=== PATIENT | female | born 1940 | race Caucasian/White ===

== ENCOUNTER 2021-10-04 23:23 | Inpatient (IN) | payer SELFPAY ==
[~2021-10-04] VITALS: Ht 165.1 cm; Wt 55.3 kg
[2021-10-05 00:04] LABS: CHLORIDE 89 mEq/L (98-107)
[2021-10-05] MEDS ORDERED: SODIUM CHLORIDE 0.9% 1,000 ML IV ONE (00:15)
[2021-10-05] MEDS ORDERED: KETOROLAC 15MG/ML VIAL IV ONE (00:15)
[2021-10-05 00:21] LABS: HEMATOCRIT. 30.7 % (36.0-48.0); HEMOGLOBIN. 10.1 g/dL (12.0-16.0); MEAN CORPUSCULAR HEMOGLOBIN 28.5 pg (28.0-32.0); MEAN CORPUSCULAR VOLUME 87.1 fL (81.0-99.0); MEAN PLATELET VOLUME 7.9 fl (7.4-10.4); PLATELET 361 x1000/uL (130-400); RED BLOOD CELL COUNT 3.53 mill/uL (4.2-5.4); RED CELL DISTRIBUTION WIDTH 15.5 % (11.6-14.6)
[2021-10-05] MEDS ORDERED: MORPHINE SULFATE 4 MG/ML CPJ (NOT FOR IM USE) IV NR (00:30)
[2021-10-05 00:59] LABS: PLATELET ESTIMATE NORMAL
[2021-10-05 09:00] VITALS: BP 121/72
[2021-10-05 09:54] VITALS: BP 121/72
[2021-10-05] MEDS ORDERED: DIPHENHYDRAMINE 50MG/ML VIAL IV PRN (10:30)
[2021-10-05] MEDS ORDERED: ACETAMINOPHEN 325MG TABLET PO PRN ×2 (10:30)
[2021-10-05] MEDS ORDERED: DEXTROSE 50% WATER 50ML SYRINGE IV PRN (10:30)
[2021-10-05] MEDS ORDERED: ONDANSETRON HCL 4MG/2ML INJ IV PRN (10:30)
[2021-10-05] MEDS ORDERED: BISACODYL 10MG SUPP PR NR (10:30)
[2021-10-05] MEDS ORDERED: CLONIDINE 0.1MG TABLET PO PRN (10:30)
[2021-10-05] MEDS ORDERED: ENOXAPARIN 40MG/0.4ML SYR SUBCUT SCH (10:30)
[2021-10-05] MEDS: ENOXAPARIN 30MG/0.3ML SYR SUBCUT SCH (11:05)
[2021-10-05 12:00] VITALS: BP 116/59
[2021-10-05] MEDS ORDERED: MAGNESIUM CITRATE 300ML SOLUTION PO NR (12:00)
[2021-10-05] MEDS: BLOOD SUGAR DIAGNOSTIC STRIP TEST SCH ×3 (12:12→21:00)
[2021-10-05] MEDS: INSULIN LISPRO 100 UNITS/ML SUBCUT SCH ×3 (13:06→22:25)
[2021-10-05] MEDS: SODIUM CHLORIDE 0.9% 1,000 ML IV SCH ×3 (13:06→22:33)
[2021-10-05] MEDS: LACTULOSE 20G/30ML UDC PO SCH ×2 (14:25→22:26)
[2021-10-05 16:00] VITALS: BP 109/71
[2021-10-05] MEDS ORDERED: GUAIFENESIN 200MG/10ML SUGAR FREE UDC PO PRN (16:15)
[2021-10-05] MEDS ORDERED: NA PHOS,M-B/NA PHOS,DI-BA ENEMA 118ML PR NR (17:00)
[2021-10-05] MEDS ORDERED: FURO40TA5 MT (18:27)
[2021-10-05] MEDS ORDERED: GLIP10TA10 MT (18:31)
[2021-10-05] MEDS ORDERED: DOCU-150 MT (18:31)
[2021-10-05] MEDS ORDERED: LOSA50TA41 MT (18:31)
[2021-10-05] MEDS ORDERED: RIVA20TA MT (18:31)
[2021-10-05] MEDS ORDERED: HYDR12.54 MT (18:31)
[2021-10-05] MEDS ORDERED: ATOR40TA70 MT (18:31)
[2021-10-05] MEDS ORDERED: METF-874 MT (18:31)
[2021-10-05] MEDS ORDERED: DILT120T13 MT (18:31)
[2021-10-05 20:00] VITALS: BP 115/54
[2021-10-05] MEDS ORDERED: ZOLPIDEM TARTRATE 5MG TABLET PO PRN (21:00)
[2021-10-06] VITALS: BP 121/61
[2021-10-06 04:00] VITALS: BP 134/53
[2021-10-06] MEDS: LACTULOSE 20G/30ML UDC PO SCH ×3 (05:34→21:36)
[2021-10-06] MEDS ORDERED: NA PHOS,M-B/NA PHOS,DI-BA ENEMA 118ML PR NR (06:00)
[2021-10-06 06:27] LABS: BASOPHILS % 0.5 % (0.0-2.0); EOSINOPHILS % 3.7 % (0.0-5.0); HEMATOCRIT. 25.8 % (36.0-48.0); HEMOGLOBIN. 8.6 g/dL (12.0-16.0); LYMPHOCYTES % 13.8 % (20.0-50.0); MEAN CORPUSCULAR VOLUME 87.1 fL (81.0-99.0); MEAN PLATELET VOLUME 7.6 fl (7.4-10.4); MONOCYTES % 4.5 % (2.0-8.0); NEUTROPHILS % 77.5 % (40.0-76.0); PLATELET 286 x1000/uL (130-400); RED BLOOD CELL COUNT 2.96 mill/uL (4.2-5.4); RED CELL DISTRIBUTION WIDTH 15.5 % (11.6-14.6)
[2021-10-06] MEDS: BLOOD SUGAR DIAGNOSTIC STRIP TEST SCH ×4 (06:53→19:58)
[2021-10-06] MEDS: INSULIN LISPRO 100 UNITS/ML SUBCUT SCH ×4 (06:53→21:45)
[2021-10-06 06:55] LABS: PHOSPHORUS 3.1 mg/dL (2.5-4.9)
[2021-10-06 08:07] VITALS: BP 100/50
[2021-10-06] MEDS: ENOXAPARIN 30MG/0.3ML SYR SUBCUT SCH (08:40)
[2021-10-06] MEDS: SODIUM CHLORIDE 0.9% 1,000 ML IV SCH ×2 (08:41→17:13)
[2021-10-06 12:19] VITALS: BP 127/67
[2021-10-06 13:28] LABS: INR 1.1; PROTHROMBIN TIME 11.6 sec (9.6-11.0)
[2021-10-06 13:30] LABS: TOTAL IRON BINDING CAPACITY 347 ug/dL (250-450)
[2021-10-06 14:59] LABS: FOLIC ACID (FOLATE) SERUM 7.7 ng/mL (>5.38)
[2021-10-06 15:57] VITALS: BP 117/68
[2021-10-06] MEDS: IRON SUCROSE COMPLEX 100 MG/5 ML ML IV SCH (18:17)
[2021-10-06 20:00] VITALS: BP 111/60
[2021-10-07] VITALS (7 sets, daily range): BP systolic 110–155; BP diastolic 58–97
[2021-10-07] MEDS: LACTULOSE 20G/30ML UDC PO SCH ×2 (04:50→14:00)
[2021-10-07] MEDS: BLOOD SUGAR DIAGNOSTIC STRIP TEST SCH ×4 (05:13→21:00)
[2021-10-07] MEDS: SODIUM CHLORIDE 0.9% 1,000 ML IV SCH ×3 (06:11→10:26)
[2021-10-07] MEDS: INSULIN LISPRO 100 UNITS/ML SUBCUT SCH ×4 (06:11→21:21)
[2021-10-07 07:49] LABS: BASOPHILS % 0.9 % (0.0-2.0); EOSINOPHILS % 9.4 % (0.0-5.0); HEMATOCRIT. 28.4 % (36.0-48.0); HEMOGLOBIN. 8.9 g/dL (12.0-16.0); LYMPHOCYTES % 22.9 % (20.0-50.0); MEAN CORPUSCULAR HEMOGLOBIN 29.3 pg (28.0-32.0); MEAN CORPUSCULAR VOLUME 93.7 fL (81.0-99.0); MEAN PLATELET VOLUME 8.4 fl (7.4-10.4); MONOCYTES % 4.5 % (2.0-8.0); NEUTROPHILS % 62.3 % (40.0-76.0); RED BLOOD CELL COUNT 3.03 mill/uL (4.2-5.4); RED CELL DISTRIBUTION WIDTH 16.5 % (11.6-14.6)
[2021-10-07 07:53] LABS: PLATELET 257 x1000/uL (130-400)
[2021-10-07 08:47] LABS: VITAMIN B12 SERUM 711 pg/mL (211-911)
[2021-10-07] MEDS: ENOXAPARIN 30MG/0.3ML SYR SUBCUT SCH (08:53)
[2021-10-07] MEDS: IRON SUCROSE COMPLEX 100 MG/5 ML ML IV SCH (17:04)
[2021-10-07] MEDS ORDERED: POLYETHYLENE GLYCOL 3350 (17GM) 1 DOSE PACK PO PRN (17:45)
[2021-10-07] MEDS ORDERED: LACTULOSE 20G/30ML UDC PO PRN (17:45)
[2021-10-07] MEDS: DOCUSATE SODIUM 250MG CAPSULE PO SCH (18:24)
[2021-10-08] VITALS (7 sets, daily range): BP systolic 118–211; BP diastolic 62–139
[2021-10-08] MEDS: BLOOD SUGAR DIAGNOSTIC STRIP TEST SCH ×4 (05:58→21:07)
[2021-10-08] MEDS: INSULIN LISPRO 100 UNITS/ML SUBCUT SCH ×4 (06:08→21:09)
[2021-10-08] MEDS: SODIUM CHLORIDE 0.9% 1,000 ML IV SCH ×2 (06:09→13:16)
[2021-10-08 08:09] LABS: BASOPHILS % 1.2 % (0.0-2.0); EOSINOPHILS % 6.9 % (0.0-5.0); HEMATOCRIT. 26.7 % (36.0-48.0); HEMOGLOBIN. 8.9 g/dL (12.0-16.0); LYMPHOCYTES % 18.8 % (20.0-50.0); MEAN CORPUSCULAR HEMOGLOBIN 28.9 pg (28.0-32.0); MEAN CORPUSCULAR VOLUME 87.3 fL (81.0-99.0); MEAN PLATELET VOLUME 7.7 fl (7.4-10.4); MONOCYTES % 3.9 % (2.0-8.0); NEUTROPHILS % 69.2 % (40.0-76.0); PLATELET 318 x1000/uL (130-400); RED BLOOD CELL COUNT 3.06 mill/uL (4.2-5.4); RED CELL DISTRIBUTION WIDTH 15.8 % (11.6-14.6)
[2021-10-08 08:44] LABS: PHOSPHORUS 3.2 mg/dL (2.5-4.9)
[2021-10-08] MEDS: DOCUSATE SODIUM 250MG CAPSULE PO SCH (08:50)
[2021-10-08] MEDS: ENOXAPARIN 30MG/0.3ML SYR SUBCUT SCH (08:51)
[2021-10-08] MEDS: DILTIAZEM HCL 30MG TABLET PO SCH ×2 (13:26→21:07)
[2021-10-08] MEDS ORDERED: ENOXAPARIN 30MG/0.3ML SYR SUBCUT NR (18:00)
[2021-10-08] MEDS: IRON SUCROSE COMPLEX 100 MG/5 ML ML IV SCH (18:06)
[2021-10-08] MEDS ORDERED: HYDRALAZINE 20MG/ML VIAL IV PRN ×2 (22:00)
[2021-10-08] MEDS ORDERED: FUROSEMIDE 40MG/4ML VIAL IVP ONE (22:00)
[2021-10-08] MEDS ORDERED: DILTIAZEM HCL 5MG/ML 5ML VIAL IV ONE (22:00)
[2021-10-08] MEDS ORDERED: DILTIAZEM HCL 5MG/ML 5ML VIAL IV NR (22:00)
[2021-10-08] MEDS: FUROSEMIDE 40MG/4ML VIAL IVP SCH (22:08)
[2021-10-09] VITALS: BP 95/61
[2021-10-09 04:00] VITALS: BP 97/63
[2021-10-09] MEDS: DILTIAZEM HCL 30MG TABLET PO SCH ×2 (06:00→14:00)
[2021-10-09] MEDS: BLOOD SUGAR DIAGNOSTIC STRIP TEST SCH ×3 (06:35→17:12)
[2021-10-09] MEDS: INSULIN LISPRO 100 UNITS/ML SUBCUT SCH ×3 (06:35→17:12)
[2021-10-09] MEDS: METFORMIN HCL 500MG TABLET PO SCH ×2 (06:46→17:27)
[2021-10-09 07:40] LABS: BASOPHILS % 0.7 % (0.0-2.0); EOSINOPHILS % 1.9 % (0.0-5.0); HEMATOCRIT. 24.9 % (36.0-48.0); HEMOGLOBIN. 8.3 g/dL (12.0-16.0); MEAN CORPUSCULAR HEMOGLOBIN 29.3 pg (28.0-32.0); MEAN CORPUSCULAR VOLUME 88.4 fL (81.0-99.0); MEAN PLATELET VOLUME 7.7 fl (7.4-10.4); MONOCYTES % 3.6 % (2.0-8.0); NEUTROPHILS % 81.8 % (40.0-76.0); PLATELET 296 x1000/uL (130-400); RED BLOOD CELL COUNT 2.82 mill/uL (4.2-5.4); RED CELL DISTRIBUTION WIDTH 15.7 % (11.6-14.6)
[2021-10-09 08:00] VITALS: BP_SYST 118; BP_SYST 88; BP_DIAS 59
[2021-10-09 08:23] LABS: PHOSPHORUS 3.8 mg/dL (2.5-4.9)
[2021-10-09] MEDS ORDERED: ENOXAPARIN 60MG/0.6ML SYR SUBCUT SCH (09:00)
[2021-10-09] MEDS: FUROSEMIDE 40MG/4ML VIAL IVP SCH (09:10)
[2021-10-09] MEDS: DOCUSATE SODIUM 250MG CAPSULE PO SCH (09:11)
[2021-10-09 12:00] VITALS: BP 100/51
[2021-10-09 16:05] VITALS: BP 108/60
[2021-10-09 16:27] VITALS: BP 108/60
[2021-10-09] MEDS: IRON SUCROSE COMPLEX 100 MG/5 ML ML IV SCH (17:27)
== END 2021-10-09 18:00 | disposition home or self-care (01) | DRG 247 ==
LOC: ER 23:23 → 8WST 10-05 03:32 → ENRESERV 10-05 07:10
PROVIDERS: ADMIT Internal Medicine; ATTEND Internal Medicine
DX: K56.41 Fecal impaction (principal); N17.9 Acute kidney failure, unspecified; E87.1 Hypo-osmolality and hyponatremia; I48.20 Chronic atrial fibrillation, unspecified; D64.9 Anemia, unspecified; E11.9 Type 2 diabetes mellitus without complications; K56.7 Ileus, unspecified; I11.0 Hypertensive heart disease with heart failure; I50.22 Chronic systolic (congestive) heart failure; D72.825 Bandemia; E87.6 Hypokalemia; Z20.822 Contact with and (suspected) exposure to COVID-19; K57.90 Diverticulosis of intestine, part unspecified, without perforation or abscess without bleeding; D72.829 Elevated white blood cell count, unspecified; M48.54XA Collapsed vertebra, not elsewhere classified, thoracic region, initial encounter for fracture; M48.56XA Collapsed vertebra, not elsewhere classified, lumbar region, initial encounter for fracture; Z82.49 Family history of ischemic heart disease and other diseases of the circulatory system; Z98.891 History of uterine scar from previous surgery; Z79.84 Long term (current) use of oral hypoglycemic drugs
CPT/HCPCS: 36415; 74018; 74176; 80048; 80053; 82607; 82728; 82746; 82962; 83036; 83540; 83550; 83735; 84100; 84443; 85025; 85044; 87426; 93306; 99285; J0360; J1650; J1815; J1885; J1940; J2270; J3490; J7030